=== PATIENT | female | born 1995 ===

== ENCOUNTER 2018-12-28 14:57 | Emergency (ER) | payer OTHER ==
[2018-12-28 15:26] VITALS: O2SAT 98
--- NOTE | 2018-12-28 15:48 | ED PDOC ---
HPI: SOB/CHF/COPD Time Seen by Provider: 12/28/18 15:36 Chief Complaint (Nursing): Shortness Of Breath History Per: Patient Onset/Duration Of Symptoms: Other (3-4 months) Current Symptoms Are (Timing): Intermittent Episodes Severity: Moderate Associated Symptoms: denies: Fever, Chest Pain, Bloody Cough, Productive Cough, Ankle/Leg Swelling Additional Complaint(s): Intermittent episodes of SOB x 3-4 months. Has been Dx'ed with bronchitis and strep throat and has been on antibiotics. Denies fever cough or chest pain. Denies leg pain or swelling. Had surgery, laparospcopic ovarian cyst removal 3 months ago. Denies abd pain. Past Medical History Vital Signs: Last Vital Signs Temp 98.4 F 12/28/18 15:21 Pulse 109 H 12/28/18 15:21 Resp 22 12/28/18 15:21 BP 133/85 12/28/18 15:21 Pulse Ox 98 12/28/18 15:21 - Medical History PMH: No Chronic Diseases - Surgical History Other surgeries: Ovarian cyst - Family History Family History: States: Unknown Family Hx - Home Medications Home Medications: Ambulatory Orders Medication Instructions Recorded Albuterol HFA [Ventolin HFA 90 2 puff IH Q4H #1 puff 12/28/18 mcg/actuation (8 g)] Prednisone 50 mg PO DAILY #5 tab 12/28/18 - Allergies Allergies/Adverse Reactions: Allergies Allergy/AdvReac Type Severity Reaction Status Date / Time No Known Allergies Allergy Verified 12/28/18 15:21 Review of Systems ROS Statement: Except As Marked, All Systems Reviewed And Found Negative Constitutional: Negative for: Fever Cardiovascular: Negative for: Chest Pain Respiratory: Positive for: Shortness of Breath, Wheezing. Negative for: Cough Musculoskeletal: Negative for: Leg Pain Physical Exam - Reviewed Nursing Documentation Reviewed: Yes Vital Signs Reviewed: Yes - Physical Exam Appears: Positive for: Non-toxic, No Acute Distress Head Exam: Positive for: ATRAUMATIC, NORMAL INSPECTION, NORMOCEPHALIC Skin: Positive for: Normal Color, Warm, DRY Eye Exam: Positive for: EOMI, Normal appearance, PERRL ENT: Positive for: Normal ENT Inspection Neck: Positive for: Normal, Painless ROM Cardiovascular/Chest: Positive for: Regular Rate, Rhythm, Tachycardia Respiratory: Positive for: Rhonchi, Wheezing (bases bilat), Respiratory Distress (Mild) Gastrointestinal/Abdominal: Positive for: Normal Exam, Soft Back: Positive for: Normal Inspection Extremity: Negative for: Calf Tenderness, Swelling Neurologic/Psych: Positive for: Alert, Oriented - Laboratory Results Result Diagrams: 12/28/18 16:16 12/28/18 16:16 - ECG O2 Sat by Pulse Oximetry: 98 - Progress Re-evaluation Time: 19:53 Condition: Improved (HR 85 o2 sat 98-100%) Medical Decision Making Medical Decision Makin Labs reviewed, CTA Chest ordered for further evaluation. 1805 Patient with persistent shortness of breath, given duoneb, IV solumedrol and IV fluids 1813 CTA Chest FINDINGS: PULMONARY ARTERIES: Unremarkable. No pulmonary embolism. AORTA: No acute findings. No thoracic aortic aneurysm. No atherosclerotic calcification or mural plaque present. LUNGS: Unremarkable. No nodule, mass or pulmonary consolidation. PLEURAL SPACES: Unremarkable. No effusion or pneumothorax. HEART: Unremarkable. No cardiomegaly. No significant pericardial effusion. LYMPH NODES: No lymphadenopathy. BONES, CHEST WALL: Unremarkable. No fracture or destructive lesion OTHER FINDINGS: Unremarkable. IMPRESSION: Unremarkable CT pulmonary angiogram. No pulmonary embolus. 1946 No evidence of PE on CTA chest, symptom have been ongoing and intermittent for 3 months. more likely represents brochospastic disease possibly asthma will treatment as such. Albuterol inhaler and short course of steroids. On reassessment, lungs are clear and patient's heart rate is 87. Patient reports feeling much better and is stable for discharge home. Instructed to follow up with PMD in 2-3 days. Patient informed to return to ER if symptoms worsen or new symptoms arise. Disposition - Clinical Impression Clinical Impression: Asthma - Patient ED Disposition Is Patient to be Admitted: No Counseled Patient/Family Regarding: Studies Performed, Diagnosis, Need For Followup, Rx Given - Disposition Disposition: Routine/Home Disposition Time: 19:48 Condition: IMPROVED Prescriptions: Albuterol HFA [Ventolin HFA 90 mcg/actuation (8 g)] 2 puff IH Q4H #1 puff Prednisone 50 mg PO DAILY #5 tab Instructions: Asthma in Adults Forms: [facility] ([place])
[2018-12-28 16:32] LABS: BASO % 0.3 % (0.0-2.0); EOS # 0.1 K/uL (0.0-0.7); EOS % 0.5 % (0.0-4.0); HEMOGLOBIN 14.7 g/dL (12.0-16.0); LYMPH # 1.9 K/uL (1.0-4.3); LYMPH % 18.3 % (20.0-40.0); MEAN CORPUSCULAR HEMOGLOBIN 29.7 pg (27.0-31.0); MEAN CORPUSCULAR HGB CONC 33.3 g/dL (33.0-37.0); MEAN PLATELET VOLUME 9.2 fl (7.2-11.7); MONO # 0.7 K/uL (0.0-0.8); MONO % 6.5 % (0.0-10.0); NEUT # 7.8 K/uL (1.8-7.0); NEUT % 74.4 % (50.0-75.0); NRBC % 0.2 % (0.0-0.0); RBC 4.94 Mil/uL (3.80-5.20); RED CELL DISTRIBUTION WIDTH 13.8 % (11.5-14.5); WHITE BLOOD COUNT 10.5 K/uL (4.8-10.8)
[2018-12-28] MEDS: Albuterol-Ipratrop 3 mg / 0.5 (3 ml) UD IH STA ×2 (16:33→18:53)
[2018-12-28] MEDS ORDERED: Albuterol-Ipratrop 3 mg / 0.5 (3 ml) UD ONE ×2 (16:33→18:48)
[2018-12-28 16:35] LABS: ALB/GLOB RATIO 1.2 (1.0-2.1); ALBUMIN 4.8 g/dL (3.5-5.0); ALT/SGPT 25 U/L (9-52); AST/SGOT 29 U/L (14-36); BLOOD UREA NITROGEN 12 mg/dl (7-17); CALCIUM 9.8 mg/dL (8.4-10.2); GFR NON-AFRICAN AMERICAN > 60
--- NOTE | 2018-12-28 16:44 | RAD ---
Date of service: 12/28/2018 HISTORY: SOB COMPARISON: No prior. TECHNIQUE: Chest PA and lateral FINDINGS: LUNGS: No active pulmonary disease. PLEURA: No significant pleural effusion identified. No pneumothorax apparent. CARDIOVASCULAR: No aortic atherosclerotic calcification present. Normal cardiac size. No pulmonary vascular congestion. OSSEOUS STRUCTURES: No significant abnormalities. VISUALIZED UPPER ABDOMEN: Normal. OTHER FINDINGS: None. IMPRESSION: No acute cardiopulmonary disease appreciated.
[2018-12-28] MEDS ORDERED: Sodium Chloride 0.9% 50 ML IV ONE (17:28)
[2018-12-28] MEDS ORDERED: Iodixanol 320 MG/ML 100 ML BOTTLE IV ONE (17:28)
--- NOTE | 2018-12-28 18:16 | CT ---
Date of service: 12/28/2018 PROCEDURE: CT Chest with contrast (Pulmonary Angiogram) HISTORY: SOB s/p surgery COMPARISON: None available. TECHNIQUE: Axial computed tomography images were obtained of the chest in the pulmonary arterial phase of enhancement. Coronal and sagittal reformatted images were created and reviewed. Intravenous contrast dose: 77 cc Visipaque [id number]. Mean Hounsfield value in the main pulmonary artery: 296.43 Radiation dose: Total exam DLP = 231.76 mGy-cm. This CT exam was performed using one or more of the following dose reduction techniques: Automated exposure control, adjustment of the mA and/or kV according to patient size, and/or use of iterative reconstruction technique. FINDINGS: PULMONARY ARTERIES: Unremarkable. No pulmonary embolism. AORTA: No acute findings. No thoracic aortic aneurysm. No atherosclerotic calcification or mural plaque present. LUNGS: Unremarkable. No nodule, mass or pulmonary consolidation. PLEURAL SPACES: Unremarkable. No effusion or pneumothorax. HEART: Unremarkable. No cardiomegaly. No significant pericardial effusion. LYMPH NODES: No lymphadenopathy. BONES, CHEST WALL: Unremarkable. No fracture or destructive lesion OTHER FINDINGS: Unremarkable. IMPRESSION: Unremarkable CT pulmonary angiogram. No pulmonary embolus.
[2018-12-28] MEDS: Sodium Chloride 0.9% 1,000 ML IV STA (18:51)
[2018-12-28 19:24] VITALS: RESP 16
[2018-12-28 19:31] VITALS: BP 114/61; PULSE 79; TEMP 98.3
--- NOTE | 2018-12-29 10:03 | CARD ---
APPROVED REPORT Date of service: 12/28/2018 EKG Measurement Heart [id number] DC [id number] <Conclusion> Sinus tachycardia Otherwise normal ECG
== END 2018-12-28 20:09 | disposition home or self-care (01) ==
LOC: H.ER 14:57
DX: J45.909 Unspecified asthma, uncomplicated (principal)
CPT/HCPCS: 71046; 71275; 80053; 81025; 85025; 85378; 93005; 96374; 99285; J2930; J7030; Q9967